=== PATIENT | female | born 1950 | race African-American/Black ===

== ENCOUNTER 2016-08-03 21:33 | Emergency (ER) | payer OTHER ==
[~2016-08-03] VITALS: Ht 160 cm; Wt 118.4 kg
[~2016-08-03 21:33] MED LIST: AMLODIPINE BESYL5 MG ORAL; AZITHROMYCIN250 MG ORAL; BACTRIM DS TAB1 EAC1 ORAL; CHERATUSSIN AC118 ML PO; CLARITIN5 MG ORAL; CLINDAMYCIN HC300 MG ORAL; CLOTRIM ANTIFUN15 GM TP; DIABETA5 MG ORAL; DIFLUCAN150 MG PO; ENALAPRIL MALEAT5 MG ORAL; HYDROCHLOROTH12.5 M2 ORAL; IBUPROFEN600 MG ORAL; IBUPROFEN800 MG ORAL; KEFLEX500 MG ORAL; KENALOG 0.025%15 GM APPLIC; LOSARTAN POTASS50 MG ORAL; METFORMIN HCL500 M1 ORAL; NKM; NORCO 5-325 TA1 EACH ORAL; OMEPRAZOLE40 M1 ORAL; PHENAZOPYRIDIN100 MG ORAL; PHENERGAN25 M1 ORAL; VIBRAMYCIN100 MG ORAL; XOPENEX HFA15 GM INH
[2016-08-03 23:09] VITALS: BP 127/79
[2016-08-03] MEDS ORDERED: ACETAMINOPHEN-1 EAC1 ORAL (23:28)
[2016-08-03 23:33] VITALS: BP 127/79
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
== END 2016-08-03 23:33 | disposition home or self-care (01) ==
LOC: EMR 22:31
DX: S16.1XXA Strain of muscle, fascia and tendon at neck level, initial encounter (principal); V43.62XA Car passenger injured in collision with other type car in traffic accident, initial encounter; Y92.410 Unspecified street and highway as the place of occurrence of the external cause; Z88.0 Allergy status to penicillin; I10 Essential (primary) hypertension; E11.9 Type 2 diabetes mellitus without complications
CPT/HCPCS: 99283

== ENCOUNTER 2017-01-27 10:13 | Emergency (ER) | payer OTHER ==
[~2017-01-27] VITALS: Ht 162.6 cm; Wt 113.4 kg
[~2017-01-27 10:13] MED LIST changes: +ACETAMINOPHEN-1 EAC1 ORAL
[2017-01-27 10:26] VITALS: BP 169/96
--- NOTE | 2017-01-27 10:41 | Emergency Room Report ---
History of Present Illness General Chief Complaint: Pain Source: Patient Present Illness HPI Patient tripped to 4 days ago over uneven tile. She fell on her left hip. She' s been able to ambulate but has pain there. She's been taking many different pain medications but mainly Aleve. She stopped taking it because she states it causes her to stop going to the bathroom. The pain is 7/10, worse when she is ambulating. Radiates somewhat down her leg. She also hit her knees so the knees are also tender - more L knee. Denies any numbness or weakness. She also complains of a upper respiratory congestion. She's heard herself wheezing. She states she's never used an inhaler in the past. She has a lot of mucous from her nose which has a greenish color. Denies any sore throat. The patient denies any chest pain. She thinks she might have had a fever. She denies dysuria. Diabetic, sugars not elevated. Allergies: Coded Allergies: PENICILLINS (Unverified Allergy, Unknown, 04/07/14) Patient History Past Medical History: see triage record Social History: Denies: smoking Social History Narrative drove herself in Reviewed Nursing Documentation: PMH: Agreed, PSxH: Agreed Nursing Documentation-PMH Hx Hypertension: Yes Hx Diabetes: Yes Hx Gastrointestinal Problems: Yes - hysterectomy Feb 2015 Review of Systems All Other Systems: negative except mentioned in HPI Physical Exam Vital Signs Date Time Temp Pulse Resp B/P Pulse Ox O2 Delivery O2 Flow Rate FiO2 01/27/17 10:20 97.3 85 20 169/96 100 Room Air Sp02 EP Interpretation: reviewed, normal General Appearance: well appearing, no apparent distress, obese Head: normocephalic, atraumatic Eyes: bilateral eye PERRL, bilateral eye normal inspection, bilateral eye other - heleotrope rash eyes ENT: hearing grossly normal, normal voice Neck: full range of motion, supple Respiratory: no respiratory distress, speaking full sentences Cardiovascular #2: 2+ radial (L), 2+ dorsalis pedis (L) Gastrointestinal: normal inspection, normal bowel sounds, non tender, overweight Musculoskeletal: digits/nails normal, normal range of motion - with some tenderness L hip and knee, no calf tenderness, pelvis stable, other - tenderness L hip and knee. Ligaments stabel. Ambulatory Neurologic: alert, oriented x3, normal gait, grossly normal Psychiatric: mood/affect normal Skin: normal color, no rash, warm/dry, other - psoriatic lesions L knee Medical Decision Making Diagnostic Impression: Primary Impression: Contusion of left hip Qualified Codes: S70.02XA - Contusion of left hip, initial encounter Additional Impression: Bronchospasm ER Course The patient presents post fall. She has pain in her left hip and knee. Differential includes sprain, strain and possible pressure. The latter is less likely however x-rays of her hip will be obtained. In addition to that she has an upper respiratory infection with wheezing. Breathing treatments been ordered. She will be treated with tylenol. Xrays without fractures. Improved with treatment. Lungs clear. Patient stable for outpatient observation and treatment. Other X-Ray Diagnostic Results X-Ray ordered: L hip # of Views/Limited Vs Complete: 2 View EP Interpretation: Yes Interpretation: no fractures, no dislocation, no soft tissue swelling Indication: Pain Impression: No acute disease Interpreting ER Provider: Electronically signed by Guillermo Newton MD Last Vital Signs Date Time Temp Pulse Resp B/P Pulse Ox O2 Delivery O2 Flow Rate FiO2 01/27/17 13:19 97.3 79 18 154/89 100 Room Air Status: improved Disposition: HOME, SELF-CARE Condition: Improved Scripts Albuterol Sulfate* (ALBUTEROL SULFATE MDI*) 8.5 Gm Hfa.aer.ad 2 PUFF INH Q6H Y for wheezing, #1 EA 0 Refills Prov: Guillermo Newton M.D. 01/27/17 Ibuprofen* (MOTRIN*) 600 Mg Tablet 600 MG ORAL Q6H Y for For Pain, #20 TAB Prov: Guillermo Newton M.D. 01/27/17 Tramadol Hcl* (ULTRAM*) 50 Mg Tablet 50 MG ORAL Q6H Y for For Pain, #6 TAB 0 Refills Prov: Guillermo Newton M.D. 01/27/17 Guillermo Newton M.D. Jan 27, 2017 10:41
[2017-01-27] MEDS ORDERED: Albuterol ud Inhalation HHN ONE (10:45)
[2017-01-27 11:54] VITALS: BP 154/89
[2017-01-27] MEDS ORDERED: IBUPROFEN600 MG ORAL (13:08)
[2017-01-27] MEDS ORDERED: TRAMADOL HCL50 MG ORAL (13:08)
[2017-01-27] MEDS ORDERED: ALBUTEROL SULF8.5 GM INH (13:08)
[2017-01-27 13:18] VITALS: BP 149/88
[2017-01-27 13:19] VITALS: BP 154/89
--- NOTE | 2017-01-27 13:39 | Diagnostic Imaging Report ---
Indication: TRAUMA, Status post fall Technique: 2 views of the left hip Comparison: None Findings: No acute fractures. No dislocations. Joint spaces are preserved Impression: Negative
== END 2017-01-27 13:21 | disposition home or self-care (01) ==
LOC: EMR 12:00
DX: S70.02XA Contusion of left hip, initial encounter (principal); W19.XXXA Unspecified fall, initial encounter; Y92.009 Unspecified place in unspecified non-institutional (private) residence as the place of occurrence of the external cause; J98.01 Acute bronchospasm; I10 Essential (primary) hypertension; E11.9 Type 2 diabetes mellitus without complications; Z90.710 Acquired absence of both cervix and uterus; Z88.0 Allergy status to penicillin
CPT/HCPCS: 73502; 94640; 94664; 99284

== ENCOUNTER 2017-12-28 13:50 | Emergency (ER) | payer MEDICARE, OTHER ==
[~2017-12-28] VITALS: Ht 160 cm; Wt 117.9 kg
[~2017-12-28 13:50] MED LIST changes: +ALBUTEROL SULF8.5 GM INH; +TRAMADOL HCL50 MG ORAL
--- NOTE | 2017-12-28 14:16 | Emergency Room Report ---
History of Present Illness General Chief Complaint: Edema Source: Patient Present Illness HPI Patient is a 67-year-old female who presented after increased bilateral lower extremity swelling. The patient reports having recent gastric bypass surgery. The patient denies any abdominal pain. She denies vomiting. The patient reports having slight increase in salty food. Patient states she noticed both legs swelling worse on the left side.The patient had previous he been taking blood pressure medications but had discontinued his medications after the surgery. Allergies: Coded Allergies: PENICILLINS (Unverified Allergy, Unknown, 04/07/14) Patient History Past Medical History: see triage record Reviewed Nursing Documentation: PMH: Agreed; PSxH: Agreed Nursing Documentation-PMH Hx Hypertension: Yes Hx Diabetes: Yes Hx Gastrointestinal Problems: Yes - hysterectomy Feb 2015 Review of Systems All Other Systems: negative except mentioned in HPI Physical Exam Vital Signs Date Time Temp Pulse Resp B/P (MAP) Pulse Ox O2 Delivery O2 Flow Rate FiO2 12/28/17 13:54 98.2 79 20 133/81 99 Room Air 98.2 Sp02 EP Interpretation: reviewed, normal General Appearance: normal inspection, well appearing, no apparent distress, alert, obese, Chronically Ill Head: atraumatic ENT: normal ENT inspection, hearing grossly normal, normal voice Neck: normal inspection, full range of motion, supple, no bony tend Respiratory: normal inspection, lungs clear, normal breath sounds, no respiratory distress, no retraction, no wheezing Cardiovascular #1: regular rate, rhythm, no edema Gastrointestinal: normal inspection, normal bowel sounds, non tender, soft, no guarding, no hernia Genitourinary: no CVA tenderness Musculoskeletal: normal inspection, back normal, normal range of motion Neurologic: normal inspection, alert, oriented x3, responsive, operating room technician III-XII nml as tested, speech normal Psychiatric: normal inspection, judgement/insight normal, mood/affect normal Skin: normal inspection, no rash, other - elephantiasis ble Medical Decision Making Diagnostic Impression: Primary Impression: Dependent edema ER Course Patient presented for bilateral lower extremity edema. Differential diagnosis included was not limited to nephrotic syndrome, liver failure, congestive heart failure, pulmonary hypertension, DVT among others.Because of complexity of patient's case laboratory testing and imaging studies were ordered.Laboratory studies showed evidence of mild anemia. The patient was advised to follow-up with her surgeon for recheck. The duplex ultrasound of both lower extremity showed no evidence of DVT. The patient is advised to resume her diuretic. She is advised to keep her leg elevated.The patient advised return if she began having worsening pain fever or other concerns. Labs Test 12/28/17 14:45 12/28/17 15:05 White Blood Count 8.1 K/UL (4.8-10.8) Red Blood Count 3.96 M/UL (4.20-5.40) Hemoglobin 10.9 G/DL (12.0-16.0) Hematocrit 35.2 % (37.0-47.0) Mean Corpuscular Volume 89 FL (80-99) Mean Corpuscular Hemoglobin 27.6 PG (27.0-31.0) Mean Corpuscular Hemoglobin Concent 31.1 G/DL (32.0-36.0) Red Cell Distribution Width 14.5 % (11.6-14.8) Platelet Count 454 K/UL (150-450) Mean Platelet Volume 5.0 FL (6.5-10.1) Neutrophils (%) (Auto) 58.9 % (45.0-75.0) Lymphocytes (%) (Auto) 29.8 % (20.0-45.0) Monocytes (%) (Auto) 5.7 % (1.0-10.0) Eosinophils (%) (Auto) 4.5 % (0.0-3.0) Basophils (%) (Auto) 1.1 % (0.0-2.0) Prothrombin Time 10.5 SEC (9.30-11.50) Prothromb Time International Ratio 1.0 (0.9-1.1) Activated Partial Thromboplast Time 26 SEC (23-33) Total Creatine Kinase 78 U/L (26-308) Pro-B-Type Natriuretic Peptide 145 pg/mL (0-125) Thyroid Stimulating Hormone (TSH) 0.812 uiU/mL (0.358-3.740) Urine Color Yellow Urine Appearance Slightly cloudy Urine pH 6 (4.5-8.0) Urine Specific [place] 1.020 (1.005-1.035) Urine Protein 1+ (NEGATIVE) Urine Glucose (UA) Negative (NEGATIVE) Urine Ketones 1+ (NEGATIVE) Urine Occult Blood Negative (NEGATIVE) Urine Nitrite Negative (NEGATIVE) Urine Bilirubin Negative (NEGATIVE) Urine Urobilinogen 4 MG/DL (0.0-1.0) Urine Leukocyte Esterase 1+ (NEGATIVE) Urine RBC 0-2 /HPF (0 - 2) Urine WBC 5-10 /HPF (0 - 2) Urine Squamous Epithelial Cells Few /LPF (NONE/OCC) Urine Bacteria Few /HPF (NONE) Urine Mucus Many /LPF (NONE/OCC) Last Vital Signs Date Time Temp Pulse Resp B/P (MAP) Pulse Ox O2 Delivery O2 Flow Rate FiO2 12/28/17 13:54 98.2 79 20 133/81 99 Room Air 98.2 Status: improved Disposition: HOME, SELF-CARE Condition: Stable Cristino Bueno MD December 28, 2017 14:16
[2017-12-28 15:08] LABS: BASOPHILS % (AUTO) 1.1 % (0.0-2.0); EOSINOPHILS % (AUTO) 4.5 % (0.0-3.0); HEMATOCRIT 35.2 % (37.0-47.0); HEMOGLOBIN 10.9 G/DL (12.0-16.0); LYMPHOCYTES % (AUTO) 29.8 % (20.0-45.0); MEAN CORPUSCULAR VOLUME 89 FL (80-99); MONOCYTES % (AUTO) 5.7 % (1.0-10.0); NEUTROPHILS % (AUTO) 58.9 % (45.0-75.0); PLATELET COUNT 454 K/UL (150-450); RED BLOOD COUNT 3.96 M/UL (4.20-5.40); RED CELL DISTRIBUTION WIDTH 14.5 % (11.6-14.8); WHITE BLOOD COUNT 8.1 K/UL (4.8-10.8)
[2017-12-28 15:09] VITALS: BP 150/75
[2017-12-28 15:33] LABS: CREATINE KINASE 78 U/L (26-308)
[2017-12-28 15:38] LABS: APPEARANCE,URINE SLIGHTLY CLOUDY; BILIRUBIN, URINE NEGATIVE (NEGATIVE); GLUCOSE, URINE (UA) NEGATIVE (NEGATIVE); KETONES,URINE 1+ (NEGATIVE); LEUKOCYTE ESTERASE ,URINE 1+ (NEGATIVE); NITRITE,URINE NEGATIVE (NEGATIVE); PH,URINE 6 (4.5-8.0); PROTEIN,URINE 1+ (NEGATIVE); UROBILINOGEN,URINE 4 MG/DL (0.0-1.0)
[2017-12-28 15:39] LABS: COLOR,URINE YELLOW
[2017-12-28 16:30] VITALS: BP 99/87
[2017-12-28 16:35] VITALS: BP 150/75
--- NOTE | 2017-12-31 17:17 | Cardiology Report ---
APPROVED REPORT EKG Measurement Heart [id number] Sinus rhythm with premature atrial complexes in a pattern of bigeminy Low voltage QRS Borderline ECG
== END 2017-12-28 16:35 | disposition home or self-care (01) ==
LOC: EMR 14:30
DX: R60.0 Localized edema (principal); I10 Essential (primary) hypertension; E11.9 Type 2 diabetes mellitus without complications; Z88.0 Allergy status to penicillin; Z90.710 Acquired absence of both cervix and uterus
CPT/HCPCS: 36415; 81001; 82550; 83880; 84443; 85025; 85610; 85730; 93005; 93970; 99283

== ENCOUNTER 2018-01-09 14:31 | Emergency (ER) | payer MEDICARE, OTHER ==
[~2018-01-09] VITALS: Ht 160 cm; Wt 120.2 kg
[2018-01-09 15:04] VITALS: BP 137/83
--- NOTE | 2018-01-09 15:09 | Emergency Room Report ---
History of Present Illness General Chief Complaint: Wound Recheck/Suture Removal Source: Patient Present Illness HPI Patient presents with request of removal of justice patient had bariatric surgery middle of November Patient was supposed to see her surgeon today of her reports that she was late and therefore was not able to be seen Denies any discharge from the area and eyes any pain denies any redness Denies any chest pain or shortness of breath Allergies: Coded Allergies: PENICILLINS (Unverified Allergy, Unknown, 04/07/14) Patient History Past Medical History: see triage record Pertinent Family History: none Last Menstrual Period: NA Reviewed Nursing Documentation: PMH: Agreed; PSxH: Agreed Nursing Documentation-PMH Past Medical History: No History, Except For Hx Hypertension: Yes Hx Diabetes: Yes Hx Gastrointestinal Problems: Yes - hysterectomy Feb 2015 Review of Systems All Other Systems: negative except mentioned in HPI Physical Exam Vital Signs Date Time Temp Pulse Resp B/P (MAP) Pulse Ox O2 Delivery O2 Flow Rate FiO2 01/09/18 14:55 98.3 69 16 137/83 95 Room Air 98.2 Sp02 EP Interpretation: reviewed, normal General Appearance: well appearing, no apparent distress Eyes: bilateral eye PERRL, bilateral eye EOMI ENT: hearing grossly normal, normal pharynx Neck: supple Respiratory: lungs clear Cardiovascular #1: regular rate, rhythm Gastrointestinal: non tender, soft, other - Patient has several justice in place all appear to be healing well mild keloid overgrowth formation in some areas Musculoskeletal: normal inspection, back normal Neurologic: alert, oriented x3 Skin: other - As above Lymphatic: no adenopathy Medical Decision Making Diagnostic Impression: Primary Impression: Encounter for wound re-check Additional Impression: staple removal ER Course After evaluation of the justice they all appear to be healing well Total of 6 justice were removed without incidence Patient started procedure well At this time patient was encouraged to follow-up with her specialist Last Vital Signs Date Time Temp Pulse Resp B/P (MAP) Pulse Ox O2 Delivery O2 Flow Rate FiO2 01/09/18 15:04 98.2 66 16 137/83 95 Room Air 98.2 Status: improved Disposition: HOME, SELF-CARE Condition: Improved Patient Instructions: Wound Closure Removal, Wound Check Additional Instructions: Patient is provided with the discharge instructions notified to follow up with primary doctor in the next 2-3 days otherwise return to the er with any worsening symptoms. Please note that this report is being documented using DRAGON technology. This can lead to erroneous entry secondary to incorrect interpretation by the dictating instrument. Nguyen Herrera DO Jan 09, 2018 15:09
[2018-01-09 15:10] VITALS: BP 137/83
== END 2018-01-09 15:15 | disposition home or self-care (01) ==
LOC: EMR 15:01
DX: Z48.02 Encounter for removal of sutures (principal); L91.0 Hypertrophic scar; E11.9 Type 2 diabetes mellitus without complications; I10 Essential (primary) hypertension; Z90.710 Acquired absence of both cervix and uterus; Z88.0 Allergy status to penicillin
CPT/HCPCS: 99281

== ENCOUNTER 2019-09-29 15:21 | Emergency (ER) | payer MEDICARE, OTHER ==
[~2019-09-29] VITALS: Ht 160 cm; Wt 101.6 kg
--- NOTE | 2019-09-29 15:53 | NUR ---
ED Nurse Note: Pt walked into ED w/ pain R foot since yesterday 04/09. R leg is swollen and ROM 2/5. Pt states she didn't injure foot. Pt is alert and orientedx4, ambulatory with assist. Pt states she has not had any dominick blood clots. Pt has no SOB.
[2019-09-29 15:56] VITALS: BP 126/80
--- NOTE | 2019-09-29 16:07 | Emergency Room Report ---
History of Present Illness General Chief Complaint: Pain Source: Patient Present Illness HPI 68-year-old female presents to the emergency department complaining of acute onset 8 out of 10 severity pain, swelling and warmth to the right ankle and foot since yesterday afternoon. Patient denies appreciable trauma or fall. Patient states that when she walked down 1 step she began feeling some soreness/ pain that was mild in the right ankle but with each step to progress. Patient reports her pain is not exacerbated upon weightbearing or walking. She denies recent open wounds. 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 She denies history of gout. She denies recent travel, recent immobilization or estrogen use. Patient denies smoking history. She reports history of gastric bypass surgery and states that she only takes vitamins daily. She states she began taking OtelZa orally last week for psoriasis. Allergies: Coded Allergies: PENICILLINS (Unverified Allergy, Unknown, 04/07/14) SULFA (SULFONAMIDE ANTIBIOTICS) (Verified Allergy, Unknown, 09/29/19) Patient History Past Medical History: see triage record Past Surgical History: other - Gastric bypass Pertinent Family History: none Now: No Reviewed Nursing Documentation: PMH: Agreed; PSxH: Agreed Nursing Documentation-PMH Past Medical History: No History, Except For Hx Hypertension: Yes Hx Diabetes: Yes Hx Gastrointestinal Problems: Yes - hysterectomy Feb 2015 Review of Systems All Other Systems: negative except mentioned in HPI Physical Exam Vital Signs Date Time Temp Pulse Resp B/P (MAP) Pulse Ox O2 Delivery O2 Flow Rate FiO2 09/29/19 15:49 98.2 78 17 136/86 (103) 100 Room Air Sp02 EP Interpretation: reviewed, normal General Appearance: no apparent distress, alert, GCS 15, non-toxic Head: normocephalic, atraumatic Eyes: bilateral eye normal inspection, bilateral eye PERRL ENT: hearing grossly normal, normal voice Neck: full range of motion Respiratory: lungs clear, normal breath sounds, speaking full sentences Cardiovascular #1: regular rate, rhythm, normal capillary refill, edema - 1 + pitting edema Right LW calf and foot/ankle Cardiovascular #2: 2+ dorsalis pedis (R), 2+ dorsalis pedis (L) Musculoskeletal: normal range of motion, gait/station normal, tender - Dorsum of the right foot, and medial aspect of the right ankle. , swelling - right foot , ankle and calf. Neurologic: alert, motor strength/tone normal, oriented x3, sensory intact, responsive, speech normal, grossly normal Psychiatric: judgement/insight normal Skin: other - warmth and erythema on the dorsum of the right foot and diffusely on the right ankle. Lymphatic: no adenopathy Medical Decision Making PA Attestation Dr. Garcia Is my supervising Physician whom patient management has been discussed with. Diagnostic Impression: Primary Impression: Cellulitis Qualified Codes: L03.115 - Cellulitis of right lower limb ER Course 68-year-old female presents to the emergency department complaining of acute onset 8 out of 10 severity pain, swelling and warmth to the right ankle and foot since yesterday afternoon. Patient denies appreciable trauma or fall. Patient states that when she walked down 1 step she began feeling some soreness/ pain that was mild in the right ankle but with each step to progress. Patient reports her pain is not exacerbated upon weightbearing or walking. She denies recent open wounds. 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 She denies history of gout. She denies recent travel, recent immobilization or estrogen use. Patient denies smoking history. She reports history of gastric bypass surgery and states that she only takes vitamins daily. She states she began taking OtelZa orally last week for psoriasis. Ddx considered but are not limited to Cellulitis, DVT, varicose vein, PAD, Venous insufficiency,Gout just to name a few. Vital signs: are WNL, pt. is afebrile H&PE are most consistent with possible cellulitis, need to r/o dvt. ORDERS: -X-ray Right ankle: WNL -X-Ray Right Foot: WNL LE duplex U/s to R/O dvt. --Negative ED INTERVENTIONS: -Clindamycin PO --Patient is provided with a cane and instructed on its use DISCHARGE: At this time pt. is stable for d/c to home. Will provide printed patient care instructions, and any necessary prescriptions. Care plan and follow up instructions have been discussed with the patient prior to discharge. Other X-Ray Diagnostic Results Other X-Ray Diagnostic Results #1: X-Ray ordered: Right Foot # of Views/Limited Vs Complete: 3 View Indication: Pain EP Interpretation: Yes DANIELA Xray: Interpretation reviewed, by supervising MD, and agrees with findings. Interpretation: no dislocation, no soft tissue swelling, no fractures Impression: No acute disease Electronically Signed by: Pauly Sanders PA-C Other X-Ray Diagnostic Results #2: X-Ray ordered: Right Ankle # of Views/Limited Vs Complete: 3 View Indication: Pain EP Interpretation: Yes DANIELA Xray: Interpretation reviewed, by supervising MD, and agrees with findings. Interpretation: no dislocation, no soft tissue swelling, no fractures Impression: No acute disease Electronically Signed by: Pauly Sanders PA-C CT/MRI/US Diagnostic Results CT/MRI/US Diagnostic Results : Imaging Test Ordered: Venous Duplex US Right LE. Impression Negative for acute DVT. Last Vital Signs Date Time Temp Pulse Resp B/P (MAP) Pulse Ox O2 Delivery O2 Flow Rate FiO2 09/29/19 15:56 98.2 91 16 126/80 98 Room Air Disposition: HOME, SELF-CARE Condition: Stable Scripts Clindamycin Hcl (CLINDAMYCIN HCL) 300 Mg Capsule 300 MG ORAL FOUR TIMES A DAY for 7 Days, #28 CAP Prov: Pauly Sanders 09/29/19 Acetaminophen With Codeine (T#3) (TYLENOL #3 TAB*) Y Tab 1 TAB ORAL Q8HR PRN for For Pain, #6 TAB Prov: Pauly Sanders 09/29/19 Referrals: MARYCHUY NICOLE MD (PCP) Pauly Sanders Sep 29, 2019 16:07
--- NOTE | 2019-09-29 17:20 | Diagnostic Imaging Report ---
Indication: Right lower extremity pain and swelling. Technique: Duplex Doppler imaging performed from the right common femoral vein to the popliteal vein. FINDINGS: Normal compressibility demonstrated from the common femoral vein to the popliteal vein. Respiratory phasicity and good augmentation demonstrated on waveform analysis. There is no evidence of thrombosis. IMPRESSION: No evidence of deep venous thrombosis within the right lower extremity.
[2019-09-29 17:55] VITALS: BP 120/78
[2019-09-29] MEDS ORDERED: Clindamycin 150mg cap ORAL ONE (18:45)
[2019-09-29] MEDS ORDERED: CLINDAMYCIN HC300 MG ORAL (18:50)
[2019-09-29] MEDS ORDERED: ACETAMINOPHEN-1 EAC1 ORAL (18:50)
--- NOTE | 2019-09-29 19:04 | NUR ---
ER DISCHARGE NOTE: Patient is cleared to be discharged per ERMD, pt is aox4, on room air, with stable vital signs. pt was given dc and prescription instructions, pt was able to verbalize understanding, pt id band removed. pt is able to ambulate with steady gait. pt took all belongings. Pt provided cane.
[2019-09-29 19:07] VITALS: BP 112/71
--- NOTE | 2019-09-30 11:06 | Diagnostic Imaging Report ---
Indication: Pain right ankle Comparison: None Findings: 3 views of the right ankle obtained. No acute fracture, malalignment, periostitis, or osteochondral defects are identified. There is soft tissue swelling generalized throughout the foot and ankle. Reason for this is not known. Plantar calcaneal spur noted. Tibiotalar marginal osteophytes noted.. Impression: Soft tissue swelling nonspecific. No fracture seen. Osteoarthritis
--- NOTE | 2019-09-30 11:07 | Diagnostic Imaging Report ---
Indication: Foot Pain Comparison: None Findings: 3 views of the right foot were obtained. No acute fractures, malalignment, erosions or periostitis are identified. There is generalized soft tissue swelling. Impression: No acute fracture.
== END 2019-09-29 19:09 | disposition home or self-care (01) ==
LOC: EMR 15:57
DX: L03.115 Cellulitis of right lower limb (principal); I10 Essential (primary) hypertension; E11.9 Type 2 diabetes mellitus without complications; Z88.0 Allergy status to penicillin; Z88.2 Allergy status to sulfonamides; Z90.710 Acquired absence of both cervix and uterus
CPT/HCPCS: 93971; 99284